=== PATIENT | female | born 1955 | race Caucasian/White ===

== ENCOUNTER 2016-10-02 20:03 | Emergency (ER) | payer BC ==
[~2016-10-02] VITALS: Ht 162.6 cm; Wt 86.2 kg
[~2016-10-02 20:03] MED LIST: ALPRAZOLAM 1 MG PO
--- OUTSIDE RECORDS SUMMARY | 2016-10-02 20:09 | XMS REPORT | Clinical Summary ---
Author Author User, [employer] Organization Count Includes [facility] Physician [place] Address Unknown Phone Unavailable Allergies, Adverse Reactions, Alerts Allergy Name Reaction Description Start Date Severity Status Provider No Known Allergies Jeanette Fishman Conditions or Problems Problem Name Problem Code Onset Date Status Entry Date Provider Comment Standard Description Annotate WELL WOMAN V70.0 Resolved Jeanette Fishman Routine general medical examination at a health care facility DEPRESSION 311 Resolved Jeanette Fishman Depressive disorder, not elsewhere classified ANXIETY 300.00 Resolved Jeanette Fishman Anxiety state, unspecified STRESS INCONTINENCE 788.39 Resolved Jeanette Fishman Other urinary incontinence INSOMNIA, CHRONIC 780.52 Active Jeanette Fishman Insomnia, unspecified HIRSUTISM 704.1 Resolved Jeanette Fishman Hirsutism 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 Jeanette Fishman Herpes zoster dermatitis of eyelid PALPITATIONS, OCCASIONAL 785.1 Resolved Jeanette Fishman Palpitations FIBROCYSTIC BREAST DISEASE 610.1 Active Jenaette Fishman Diffuse cystic mastopathy BRONCHITIS 490 Resolved Jeanette Fishman Bronchitis, not specified as acute or chronic COUGH 786.2 Resolved Jeanette Fishman Cough POLYARTHRALGIA 719.49 Resolved Jeanette Fishman Pain in joint involving multiple sites URI 465.9 Resolved Jeanette Fishman Acute upper respiratory infections of unspecified site ANAPHYLACTIC REACTION 995.0 Resolved Jeanette Fishman Other anaphylactic reaction HEEL PAIN, LEFT 729.5 Resolved Jeanette Fishman Pain in limb MENOPAUSAL SYNDROME 627.0 Resolved Jeanette Fishman Premenopausal menorrhagia ABNORMAL MAMMOGRAM 793.80 Resolved Jeanette Fishman Abnormal mammogram, unspecified HEALTH SCREENING V70.0 Inactive Jeanette Fishman Routine general medical examination at a health care facility LUMBAR RADICULOPATHY, RIGHT 724.4 Active Jeanette Fishman Thoracic or lumbosacral neuritis or radiculitis, unspecified HIRSUTISM 704.1 Active Jeanette Fishman Hirsutism MIGRAINE VARIANT 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 Active Jeanette Fishman Variants of migraine, not elsewhere classified, without mention of intractable migraine, without mention of status migrainosus Medication List Medication Instructions Start Date Stop Date Generic Name NDC Status Provider Patient Instruction XANAX 0.5 MG TABS 1 PO Q HS PRN ALPRAZOLAM 40967026548 Active Janay Suarez FIORINAL 325-50-40 MG CAP 1 PO TID prn headache ASPIRIN- CAFFEINE-BUTALBITAL 94566739008 Active Jeanette Fishman VANIQA 13.9 % CREA Apply to affected area BID EFLORNITHINE HCL 98953873653 Active Jeanette Fishman PREMARIN 0.625 MG/GM CREA 1 gm intravaginally HS 3 times a week for 4 weeks then twice a week ESTROGENS, CONJUGATED VAGINAL 70192996078 No Longer Active Jeanette Fishman VITAMIN D 1000 UNIT TABS 1 PO Daily CHOLECALCIFEROL 41726936784 Active Jeanette Fishman GNP FLAX SEED OIL CAPS 2 po daily FLAXSEED (LINSEED) CAPS 34901787948 Active Jeanette Zarina Fishman VITAMIN B-12 1000 MCG TABS 1 PO daily CYANOCOBALAMIN 71142192254 Active Jeanette Zarina Fishman ZYRTEC 10 MG TAB 1 PO QD CETIRIZINE HCL Active Jeanette Zarina Fishman ALPRAZOLAM 1 MG TABS 1 PO QHS ALPRAZOLAM 97424823218 No Longer Active Jeanette Zarina Fishman PREMARIN 0.3 MG TAB 1 PO QD ESTROGENS CONJUGATED 99371650822 No Longer Active Jeanette Zarina Fishman CELEXA 20 MG TABS 1 PO daily CITALOPRAM HYDROBROMIDE 91585770781 No Longer Active Jeanette Zarina Fishman VOLTAREN 75 MG TBEC 1 PO BID for arthritis flare. DICLOFENAC SODIUM 46946641881 No Longer Active Jeanettemonica Fishman EPIPEN 2-DOMINGA MARCI 1 injection at first sign of Allergic reaction prn EPINEPHRINE HCL (ANAPHYLAXIS) MARCI 85288465095 No Longer Active Jeanette Zarina Fishman SILVESTRE 180 MG TABS 1 PO BID FEXOFENADINE HCL 45557489793 No Longer Active Jeanettemonica Fishman MEDROL (DOMINGA) 4 MG TABS As directed METHYLPREDNISOLONE 99968523749 No Longer Active Jeanette Zarina Fishman VOLTAREN 75 MG EC TAB 1 PO BID for arthritis flare DICLOFENAC SODIUM 22624375582 No Longer Active Jeanette Zarina Fishman CODICLEAR DH 5-100 MG/5ML SYRP 5 cc Po Q4-6prn HYDROCODONE-GUAIFENESIN 74391487558 No Longer Active Jeanette Zarina Fishman MUCINEX 600 MG TB12 1 PO BID for 5 days GUAIFENESIN 69185963907 No Longer Active Jeanette Zarina Fishman AUGMENTIN 500-125 MG TAB 1 PO BID for 7 days AMOXICILLIN-POT CLAVULANATE 23946493014 No Longer Active Jeanette Fishman LORTAB 5 5-500 MG TABS 1/2 to 1 pill Q6hrs ACETAMINOPHEN-HYDROCODONE 00993831394 No Longer Active Jeanette Fishman VALTREX 1 GM TABS 1 PO TID for 7 days VALACYCLOVIR HCL 78591771062 No Longer Active Jeanette Fishman SILVESTRE 180 MG TABS 1 po daily FEXOFENADINE HCL 22320256156 No Longer Active Jeanette Fishman MULTIVITAMINS TABS 1 po daily MULTIPLE VITAMIN 25005209170 Active Jeanette Fishman Immunizations Vaccine Administration Date Value Standard Description Influenza vaccine given DONE influenza virus vaccine, unspecified formulation Influenza vaccine given Done influenza virus vaccine, unspecified formulation Vital Signs Date Name Value Unit Range Description blood pressure, diastolic - 8462-4 78 mm[Hg] BP mack blood pressure, systolic - 8480-6 130 mm[Hg] BP sys pulse rate E&M - 8867-4 56 /min Heart rate respiratory rate E&M - 9279-1 14 /min Resp rate temperature E&M 98.6 [degF] Body temperature blood pressure, diastolic - 8462-4 78 mm[Hg] BP mack blood pressure, systolic - 8480-6 134 mm[Hg] BP sys pulse rate E&M - 8867-4 66 /min Heart rate respiratory rate E&M - 9279-1 14 /min Resp rate temperature E&M 98.6 [degF] Body temperature Encounters Code Encounter Date Provider Facility CPT-31942 Ofc Vst, Est Level IV 18:23:12 CDT Jeanette Zarina Fishman Jeanette S Fishman, DO, FACP CPT-22565 Ofc Vst, Est Level IV 16:07:12 CDT Jeanette Zarina Pulidoner Jeanette Joseline Kye DO, FACP CPT-45046 Ofc Vst, Est Level IV 11:03:41 CDT Jeanette Pulidoner Jeanette Joseline Kye DO, FACP CPT-67564 Ofc Vst, Est Level III 15:55:05 CDT [facility] Zarina Fishman [facility] CPT-61078 Ofc Vst, Est Level V 10:21:29 CDT [facility] Zarina Kye Fishman DO, FACP CPT-08993 Ofc Vst, Est Level III 09:41:01 PRINCIPAL ADMINISTRATIVE CLERK Jeanette Zarina Kye Fishman DO, FACP CPT-32108 Ofc Vst, Est Level III 11:05:19 PRINCIPAL ADMINISTRATIVE CLERK Jeanette Fishman Count Includes [facility] [place] CPT-35916 Ofc Vst, Est Level IV 16:33:24 CDT Jeanettemonica Fishman Count Includes [facility] [place] CPT-19959 Ofc Vst, Est Level III 09:12:04 PRINCIPAL ADMINISTRATIVE CLERK Jeanette Fishman Count Includes [facility] [place] CPT-74116 Ofc Vst, Est Level III 09:20:15 PRINCIPAL ADMINISTRATIVE CLERK Jeanette Fishman Count Includes [facility] [place] CPT-26528 Ofc Vst, Est Level III 13:07:49 PRINCIPAL ADMINISTRATIVE CLERK Jeanette Fishman Count Includes [facility] [place] CPT-97991 Ofc Vst, New Level III 18:00:20 PRINCIPAL ADMINISTRATIVE CLERK Jeanette Fishman Count Includes [facility] [place] Procedures Code Procedure Name Date Entry Date Standard Description CPT-65932 Injection, Rabies 09:42:49 CDT CPT-28063 Preventive, Est, (40-64) 12:39:59 CDT CPT-31476 Preventive, Est, (40-64) 13:10:30 CDT CPT-38461 Preventive, New, (40-64) 11:35:25 PRINCIPAL ADMINISTRATIVE CLERK CPT-77245 Preventive, Est, (40-64) 14:28:50 CDT CPT-47669 Handling of specimen from office to lab 14:28:50 CDT CPT-22379 Preventive, Est, (40-64) 17:39:31 CDT CPT-95938 Handling of specimen from office to lab 17:39:31 CDT CPT-35904 Preventive, Est, (40-64) 17:01:06 PRINCIPAL ADMINISTRATIVE CLERK CPT-95827 Handling of specimen from office to lab 17:01:06 PRINCIPAL ADMINISTRATIVE CLERK
--- OUTSIDE RECORDS SUMMARY | 2016-10-02 20:09 | XMS REPORT | Continuity of Care Document ---
Author Author [facility] Organization [facility] Address Unknown Phone Unavailable Allergies Active Description Code Type Severity Reaction Onset Reported/Identified Relationship to Patient Clinical Status Yes No Known Drug Allergies [id number] Drug Allergy Unknown N/ A 03/15/2012 Medications Problems Date Dx Coded Attending Type Code Diagnosis Diagnosed By 08/05/2014 LOPEZ DO, STEVENSON Ot V04.5 08/07/2014 LOPEZ DO, STEVENSON Ot V04.5 08/11/2014 LOPEZ DO, STEVENSON Ot V04.5 08/18/2014 LOPEZ DO, STEVENSON Ot V04.5 09/03/2014 LOPEZ DO, STEVENSON Ot V04.5 11/02/2014 LOPEZ DO, STEVENSON Ot V04.5 11/02/2014 LOPEZ DO, STEVENSON Ot Z23 Procedures Results Encounters ACCT No. Visit Date/Time Discharge Status Pt. Type Provider Facility Loc./Unit Complaint [id number] 11/03/2014 00:09:00 2014 23:59:59 CLS Preadmit JESSICA BERGERON STEVENSON [facility] SURG RCR [id number] 08/18/2014 13:04:00 2014 00:01:00 DIS Outpatient CHLOE LOPEZ DOI [facility] SURG RCR [id number] 09/04/2013 08:10:00 2013 23:59:59 CLS Outpatient [id number] 10/17/2012 10:43:00 2012 23:59:59 CLS Outpatient
--- OUTSIDE RECORDS SUMMARY | 2016-10-02 20:09 | XMS REPORT | Clinical Summary ---
Author Author User, [employer] Organization [facility] Physician [place] Address Unknown Phone Unavailable Allergies, Adverse Reactions, Alerts Allergy Name Reaction Description Start Date Severity Status Provider No Known Allergies Jeanette Fishman Conditions or Problems Problem Name Problem Code Onset Date Status Entry Date Provider Comment Standard Description Annotate WELL WOMAN V70.0 Resolved Jeantete Fishman Routine general medical examination at a [...] Fishman Palpitations FIBROCYSTIC BREAST DISEASE 610.1 Active Jeanette Fishman Diffuse cystic mastopathy BRONCHITIS 490 Resolved [...] TABS 1 PO Q HS PRN ALPRAZOLAM 01246294115 Active Janay Suarez FIORINAL 325-50-40 MG CAP 1 PO TID prn headache ASPIRIN- CAFFEINE-BUTALBITAL 39057979163 Active Jeanette Fishman VANIQA 13.9 % CREA Apply to affected area BID EFLORNITHINE HCL 39105078701 Active Jeanette Fishman PREMARIN 0.625 MG/GM CREA 1 gm intravaginally HS 3 times a week for 4 weeks then twice a week ESTROGENS, CONJUGATED VAGINAL 52275245162 No Longer Active Jeanette Fishman VITAMIN D 1000 UNIT TABS 1 PO Daily CHOLECALCIFEROL 06817626794 Active Jeanette Fishman GNP FLAX SEED OIL CAPS 2 po daily FLAXSEED (LINSEED) CAPS 81285761763 Active Jeanette Zarina Fishman VITAMIN B-12 1000 MCG TABS 1 PO daily CYANOCOBALAMIN 96607307364 Active Jeanette Zarina Fishman ZYRTEC 10 MG TAB 1 PO QD CETIRIZINE HCL Active Jeanette Zarina Fishman ALPRAZOLAM 1 MG TABS 1 PO QHS ALPRAZOLAM 41518547644 No Longer Active Jeanette Zarina Fishman PREMARIN 0.3 MG TAB 1 PO QD ESTROGENS CONJUGATED 58423641674 No Longer Active Jeanette Zarina Fishman CELEXA 20 MG TABS 1 PO daily CITALOPRAM HYDROBROMIDE 34134406040 No Longer Active Jeanette Zarina Fishman VOLTAREN 75 MG TBEC 1 PO BID for arthritis flare. DICLOFENAC SODIUM 52643385992 No Longer Active Jeanettemonica Fishman EPIPEN 2-DOMINGA MARCI 1 injection at first sign of Allergic reaction prn EPINEPHRINE HCL (ANAPHYLAXIS) MARCI 87041806342 No Longer Active Jeanette Zarina Fishman SILVESTRE 180 MG TABS 1 PO BID FEXOFENADINE HCL 47791123231 No Longer Active Jeanettemonica Fishman MEDROL (DOMINGA) 4 MG TABS As directed METHYLPREDNISOLONE 72257399304 No Longer Active Jeanette Zarina Fishman VOLTAREN 75 MG EC TAB 1 PO BID for arthritis flare DICLOFENAC SODIUM 25164391913 No Longer Active Jeanette Zarina Fishman CODICLEAR DH 5-100 MG/5ML SYRP 5 cc Po Q4-6prn HYDROCODONE-GUAIFENESIN 01712303373 No Longer Active Jeanette Zarina Fishman MUCINEX 600 MG TB12 1 PO BID for 5 days GUAIFENESIN 46491985342 No Longer Active Jeanette Zarina Fishman AUGMENTIN 500-125 MG TAB 1 PO BID for 7 days AMOXICILLIN-POT CLAVULANATE 77062453875 No Longer Active Jeanette Fishman LORTAB 5 5-500 MG TABS 1/2 to 1 pill Q6hrs ACETAMINOPHEN-HYDROCODONE 22207312948 No Longer Active Jeanette Fishman VALTREX 1 GM TABS 1 PO TID for 7 days VALACYCLOVIR HCL 33489803569 No Longer Active Jeanette Fishman SILVESTRE 180 MG TABS 1 po daily FEXOFENADINE HCL 00316483119 No Longer Active Jeanette Fishman MULTIVITAMINS TABS 1 po daily MULTIPLE VITAMIN 20190897809 Active Jeanette Fishman Immunizations Vaccine Administration Date [...] temperature Encounters Code Encounter Date Provider Facility CPT-93621 Ofc Vst, Est Level IV 18:23:12 CDT Jeanette Zarina Fishman Jeanette S Fishman, DO, FACP CPT-45671 Ofc Vst, Est Level IV 16:07:12 CDT Jeanette Trevizo Kye DO, FACP CPT-27323 Ofc Vst, Est Level IV 11:03:41 CDT Jeanette Pulidoner Jeanette Trevizo Kye DO, FACP CPT-80240 Ofc Vst, Est Level III 15:55:05 CDT [facility] Zarina Fishman [facility] CPT-56009 Ofc Vst, Est Level V 10:21:29 CDT Jeanettemonica Pulidoner Jeanette Trevizo Kye DO, FACP CPT-83787 Ofc Vst, Est Level III 09:41:01 MEAT MANAGER Jeanette Pulidoner Jeanette Trevizo Kye DO, FACP CPT-00932 Ofc Vst, Est Level III 11:05:19 MEAT MANAGER Jeanette Morrisone Kye [facility] [place] CPT-72645 Ofc Vst, Est Level IV 16:33:24 CDT Jeanette Zarinabetsy Fishman [facility] [place] CPT-32242 Ofc Vst, Est Level III 09:12:04 MEAT MANAGER Jeanette Fishman [facility] [place] CPT-22524 Ofc Vst, Est Level III 09:20:15 MEAT MANAGER Jeanette Fishman [facility] [place] CPT-11913 Ofc Vst, Est Level III 13:07:49 MEAT MANAGER Jeanette Fishman [facility] [place] CPT-71232 Ofc Vst, New Level III 18:00:20 MEAT MANAGER Jeanette Fishman [facility] [place] Procedures Code Procedure Name Date Entry Date Standard Description CPT-95902 Preventive, Est, (40-64) 12:39:59 CDT CPT-49031 Preventive, Est, (40-64) 13:10:30 CDT CPT-96928 Preventive, New, (40-64) 11:35:25 MEAT MANAGER CPT-79334 Preventive, Est, (4064) 14:28:50 CDT CPT-92180 Handling of specimen from office to lab 14:28:50 CDT CPT-96804 Preventive, Est, (4064) 17:39:31 CDT CPT-35001 Handling of specimen from office to lab 17:39:31 CDT CPT-48340 Preventive, Est, (4064) 17:01:06 MEAT MANAGER CPT-69459 Handling of specimen from office to lab 17:01:06 MEAT MANAGER
--- NOTE | 2016-10-02 20:28 | ED Lower Extremity ---
General Chief Complaint: Lower Extremity Stated Complaint: R LEG PAIN/BILAT FOOT SWELLING Source: patient Exam Limitations: no limitations History of Present Illness Time seen by provider: 20:15 Initial Comments Here with report of pain to the right calf muscle posterior that started on Sunday. She woke up with it on Sunday and thought maybe one of her grandkids had hit her leg in the middle of the night when they were sleeping. She tried to exercise it out and it did not help. Denies breathing problems or chest pain. Denies other injury or concerns. Is not taking any medicines or have any other significant medical issues or concerns. No recent surgeries or injuries. Works as a teacher. Onset: other (3 days) Severity: mild, moderate Pain/Injury Location: right leg Method of Injury: unknown Modifying Factors: Worse With Movement, Improves With Rest Allergies and Home Medications Allergies Coded Allergies: No Known Drug Allergies (Unverified , 03/15/12) Home Medications No Active Prescriptions or Reported Meds Constitutional: see HPI, No chills, No fever Respiratory: no symptoms reported, No short of breath, No wheezing Cardiovascular: no symptoms reported, No chest pain, No palpitations Gastrointestinal: no symptoms reported, No nausea, No vomiting Genitourinary: no symptoms reported Musculoskeletal: No joint pain, muscle pain Skin: No change in color, No lesions Psychiatric/Neurological: No Symptoms Reported Past Qpdagsf-Rzxnae-Fjzilu Hx Patient Social History Alcohol Use: Denies Use Recreational Drug Use: No Smoking Status: Never a Smoker Recent Foreign Travel: No Contact w/Someone Who Travel: No Immunizations Up To Date Date of Influenza Vaccine: Nov 13, 2011 Surgeries History of Surgeries: Yes Surgeries: Tubal Ligation Respiratory History of Respiratory Disorde: No Cardiovascular History of Cardiac Disorders: No Neurological History of Neurological Disord: No Genitourinary History of Genitourinary Disor: No Gastrointestinal History of Gastrointestinal Di: No Endocrine History of Endocrine Disorders: No HEENT History of HEENT Disorders: No Cancer History of Cancer: No Reviewed Nursing Assessment Reviewed/Agree w Nursing PMH: Yes Family Medical History Significant Family History: No Pertinent Family Hx Physical Exam Vital Signs Vital Sign - Last 12Hours 10/02/16 20:08 Temp 97.2 Pulse 78 Resp 20 B/P (MAP) 146/78 Pulse Ox 94 O2 Delivery Room Air Capillary Refill : General Appearance: WD/WN, no apparent distress Cardiovascular: regular rate, rhythm, no murmur Respiratory: lungs clear, normal breath sounds Gastrointestinal: non tender, soft Legs: right leg soft tissue tenderness (posterior calf), right leg swelling ( right lower leg appears to be swollen when compared to the left lower) Ankles: bilateral ankle non-tender, bilateral ankle normal inspection, bilateral ankle normal range of motion Feet: bilateral foot non-tender, bilateral foot normal inspection, bilateral foot normal range of motion Neurologic/Psychiatric: alert, oriented x 3 Skin: normal color, warm/dry Progress/Results/Core Measures Results/Orders My Orders Orders - WILDER DOBBINS MD Venous Lower Ext Rt (10/02/16 20:22) Vital Signs/I&O Vital Sign - Last 12Hours 10/02/16 20:08 Temp 97.2 Pulse 78 Resp 20 B/P (MAP) 146/78 Pulse Ox 94 O2 Delivery Room Air Progress Note : Progress Note Seen and evaluated. Ultrasound right lower extremity ordered. Monitor patient. 2200: No acute findings on ultrasound. Discharged home with return precautions. Patient and family verbalize understanding instructions and agreement with plan. Diagnostic Imaging Diagonstic Imaging: Ultrasound Plain Films/CT/US/NM/MRI: leg Comments No evidence of DVT on preliminary read. Departure Impression Impression: Primary Impression: Right leg pain Disposition: 01 HOME, SELF-CARE Condition: Improved Departure-Patient Inst. Decision time for Depature: 22:07 Referrals: STEVENSON LOPEZ DO (PCP) Primary Care Physician Patient Instructions: Deep Vein Thrombosis (Blood Clots in the Legs) (DC) Add. Discharge Instructions: All discharge instructions reviewed with patient and/or family. Voiced understanding. It does not appear that you had a blood clot in your leg. Information was given for information purposes only. You may take Naprosyn or ibuprofen per package directions. Drink plenty of fluids. Follow-up with your Dr. in a few days for recheck. Return for worse pain, swelling, weakness, breathing problems or other concerns as needed. Scripts No Active Prescriptions or Reported Meds WILDER DOBBINS MD Oct 02, 2016 20:28
[2016-10-02 22:07] VITALS: BP 146/78
--- NOTE | 2016-10-03 08:11 | Diagnostic Imaging Report ---
INDICATION: Right leg pain. Right leg venous Doppler study was performed in the routine fashion with color flow Doppler and waveform analysis. FINDINGS: The right common femoral vein, superficial femoral vein, popliteal vein and visualized portion of the tibial veins show normal compressibility and venous flow patterns. There is normal augmentation. IMPRESSION: No evidence of deep vein thrombosis of the major veins of the right leg. Dictated by: Dictated on workstation # [id number]
== END 2016-10-02 22:07 | disposition home or self-care (01) ==
LOC: EDUNIT# 20:03 → ER 20:05
DX: M79.661 Pain in right lower leg (principal); Z98.51 Tubal ligation status
CPT/HCPCS: 99283

== ENCOUNTER → 2016-10-18 | Outpatient (CLI) | payer BC ==
--- NOTE | 2016-10-19 10:34 | Diagnostic Imaging Report ---
INDICATION: Digital mammogram bilateral screening. COMPARISON: This study was compared to the prior exams of 10/17/2012 and 12/15/2011. PERSONAL HISTORY: At this time, there are no current complaints. TECHNIQUE: Screening digital mammography was performed bilaterally with a Computer Aided Detection (CAD) system. FINDINGS: The fibroglandular tissue in both breasts is dense. This does limit the sensitivity of this exam. Overall, there does not appear to have been any significant change when compared to the prior study. No primary or secondary sign of malignancy is noted. IMPRESSION: 1. There is no evidence for malignancy. 2. The patient should have her annual bilateral screening mammogram on schedule in October 2017. ACR BI-RADS Category 1: Negative. Result letter will be mailed to the patient. Note: At least 10% of breast cancer is not imaged by mammography. Dictated by: Dictated on workstation # [id number]
== END ==
LOC: RAD 08:34
PROVIDERS: ATTEND Internal Medicine
DX: Z12.31 Encounter for screening mammogram for malignant neoplasm of breast (principal)
CPT/HCPCS: 77067

== ENCOUNTER → 2019-02-27 | Outpatient (CLI) | payer BC ==
--- NOTE | 2019-02-27 09:55 | Diagnostic Imaging Report ---
INDICATION: Routine screening. Comparison is made with prior mammogram 10/18/2016 and 10/17/2012. 2-D and 3-D bilateral screening mammography was performed with CAD. Both breasts are heterogeneously dense, limiting the sensitivity of mammography. Benign calcifications are identified bilaterally. The parenchymal pattern is stable. Node mass or malignant-appearing microcalcifications are seen. Axillae are unremarkable. IMPRESSION: BI-RADS Category 2 No mammographic features suspicious for malignancy are identified. ACR BI-RADS Category 2: Benign findings. Result letter will be mailed to the patient. Note: At least 10% of breast cancer is not imaged by mammography. Dictated by: Dictated on workstation # [id number]
== END ==
LOC: RAD 07:41
PROVIDERS: ATTEND Internal Medicine
DX: Z12.31 Encounter for screening mammogram for malignant neoplasm of breast (principal)
CPT/HCPCS: 77067

== ENCOUNTER → 2020-07-22 | Outpatient (CLI) | payer BC ==
--- NOTE | 2020-07-22 12:21 | Diagnostic Imaging Report ---
Digital mammogram. INDICATION: Bilateral screening This study was compared to the prior exam of 02/27/2019 and 10/18/2016. At this time there are no current complaints. The current study was also evaluated with a Computer Aided Detection (CAD) system. FINDINGS: The fibroglandular tissue in both breasts is heterogeneously dense. This does limit the sensitivity of this exam. Overall, there does not appear to have been any significant change when compared to the prior study. No primary or secondary sign of malignancy is noted. IMPRESSION: There is no radiographic evidence for malignancy. ACR BI-RADS Category 1: Negative. Result letter will be mailed to the patient. Note: At least 10% of breast cancer is not imaged by mammography. Dictated by: Dictated on workstation # [id number]
== END ==
LOC: RAD 08:00
PROVIDERS: ATTEND Internal Medicine
DX: Z12.31 Encounter for screening mammogram for malignant neoplasm of breast (principal)
CPT/HCPCS: 77063; 77067

== ENCOUNTER → 2022-05-19 | Outpatient (CLI) | payer MEDICARE, OTHER ==
--- NOTE | 2022-05-19 10:02 | Diagnostic Imaging Report ---
Indication: Routine screening. Comparison is made with prior mammograms from 07/22/2020 and 02/27/2019. 2-D and 3-D bilateral screening mammography was performed with CAD. Both breasts are heterogeneously dense, limiting the sensitivity of mammography. No mass or malignant-appearing microcalcifications are seen. There are scattered benign calcifications. Axillae are unremarkable. IMPRESSION: BI-RADS Category 2 No mammographic features suspicious for malignancy are identified. ACR BI-RADS Category 2: Benign findings. Result letter will be mailed to the patient. Note: At least 10% of breast cancer is not imaged by mammography. Dictated by: Dictated on workstation # [id number]
== END ==
LOC: RAD 07:44
PROVIDERS: ATTEND Internal Medicine
DX: Z12.31 Encounter for screening mammogram for malignant neoplasm of breast (principal)
CPT/HCPCS: 77063; 77067